=== PATIENT | female | born 2000 | race Caucasian/White ===

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

== ENCOUNTER 2022-01-07 02:48 | Outpatient (CLI) | payer OTHER, SELFPAY ==
[2022-01-07 13:07] LABS: Ferritin 38 ng/mL (8-252)
[2022-01-09 09:15] LABS: Transferrin 254 mg/dL (201-352)
== END 2022-01-07 02:49 | disposition home or self-care (01) ==
LOC: LOS 02:48
PROVIDERS: PCP Nurse Practitioner; Visit Provider Nurse Practitioner
DX: E06.3 Autoimmune thyroiditis (principal)
CPT/HCPCS: 36415; 82728; 84466

== ENCOUNTER 2022-03-29 22:18 | Outpatient (REF) | payer OTHER, SELFPAY | END 2022-03-29 22:19 | disposition home or self-care (01) | LOC: LBN 22:18 | PROVIDERS: PCP Nurse Practitioner; Visit Provider Nurse Practitioner Family | DX: J02.9 Acute pharyngitis, unspecified (principal) | CPT/HCPCS: 87070 ==

== ENCOUNTER 2025-06-15 15:59 | Outpatient (REF) | payer OTHER, SELFPAY ==
--- NOTE | 2025-06-15 15:30 | PAPFT_PTH ---
PATIENT: Cecile Beal LOC: [facility] U#:[id number] AGE/SX: 25/F ROOM: RE06/15/[address]: Augustina Ornelas DO : 2000 BED: DIS: 06/15/2025 SPEC #: [id number] RECD: 06/15/25 18:07 STATUS: SHANNAEzequiel REQ #: [id number] IVA: 06/15/25 15:[address]: Augustina Ornelas DEPT: [facility] Cytology RECD BY: Lyla Osorio ENTERED: 06/15/25 18:07 SP TYPE: PAPFT OTHR DR: Unknown,Unknown Tissues: 1 - CX/ENDOCX FOR PAP SMEARS Procedures: PAP THIN PREP/[facility] Screening HPV DNA PROBE Comments: [id number] (HPV 16 & 18/45) (CHLAMYDIA/GC)
[2025-06-16 11:03] LABS: Chlamydia Result Negative (Negative); GC Result Negative (Negative)
== END 2025-06-15 16:00 | disposition home or self-care (01) ==
LOC: LBN 15:59
PROVIDERS: Visit Provider Obstetrics & Gynecology
DX: Z12.4 Encounter for screening for malignant neoplasm of cervix (principal)
CPT/HCPCS: 87491; 87591; 88142; 87624